=== PATIENT | female | born 1950 | race Caucasian/White ===

== ENCOUNTER 2017-12-16 08:48 | Outpatient (CLI) | payer OTHER ==
[~2017-12-16 08:48] MED LIST: BENADRYL50 MG PO; CALAN 240 MG PO; CALAN SR 120MG120 MG PO; DRONABINOL5 MG; FOSAMAX70 MG; LASIX20 MG PO; LIPITOR40 MG; Lipitor 20MG PO; MEDROLPACK PO; PRE PROTEIN1 TAB PO; SYNTHROID50 MCG; SYNTHROID75 MCG PO; Synthroid PO; VERAPAMIL ER240 MG; Xopenex 0.63 MG/3 ML SOLUTION IH
== END 2017-12-16 09:01 | disposition home or self-care (01) ==
LOC: NUCLEAR 08:48
DX: I42.0 Dilated cardiomyopathy (principal)
CPT/HCPCS: 78472; 78496; A9560

== ENCOUNTER 2019-03-11 07:55 | Emergency (ER) | payer OTHER ==
[~2019-03-11] VITALS: Ht 149.9 cm; Wt 44.9 kg
[2019-03-11] MEDS ORDERED: CARVEDILOL25 MG (08:06)
[2019-03-11] MEDS ORDERED: POTASSIUM99 MG PO (08:07)
[2019-03-11] MEDS ORDERED: ALENDRONATE SOD70 MG (08:10)
== END 2019-03-11 13:18 | disposition home or self-care (01) ==
LOC: ER 07:55
DX: J45.998 Other asthma (principal)